=== PATIENT | female | born 1975 | race Caucasian/White ===

== ENCOUNTER 2016-05-09 18:24 | Emergency (ER) | payer OTHER ==
[2016-05-09 19:05] VITALS: PULSE 86; TEMP 99.7; BMI 27.9
--- NOTE | 2016-05-09 19:48 | PDOC ---
History of Present Illness - General History Source: Patient Exam Limitations: No Limitations - History of Present Illness Initial Comments: 05/09/16 19:54 The patient is a 41 year old female, with a significant past medical history of lupus, PE, TIA and dystonia, who presents to the emergency department with left sided neck pain and left shoulder pain with associated numbness/tingling radiating down her left arm to her left hand since earlier today. The patient reports that she was lifting her son (who is 64 lbs) yesterday and felt a popping sensation in the middle of her back as she was lifting him up. This morning, as she was stretching, she felt two additional popping sensations in her mid to upper back. As the day progressed today, the patient states that she has experienced increased left sided neck pain and left shoulder pain with intermittent episodes of left arm/left hand numbness and tingling. The patient reports that she had an MRI of the brain about a year and a half ago which revealed some cervical disc herniation. The patient denies chest pain. The patient denies fever, chills, headache, nausea, vomiting or any recent illnesses. The patient denies any other extremity weakness/numbness/tingling. Allergies: None reported. Past Surgical History: None reported. Social History: Non smoker. Denies alcohol or drug use. Neurologist: Dr. Lewis Cool <Britt Brady - Last Filed: 05/09/16 20:35> <Paula Larsen - Last Filed: 05/10/16 02:10> - General Chief Complaint: Pain Stated Complaint: LEFT NECK AND LEFT ARM NUMB Time Seen by Provider: 05/09/16 19:12 Past History <Britt Brady - Last Filed: 05/09/16 20:35> - Past Medical History HTN: Yes Other medical history: LUPUS - Immunization History Td Vaccination: Yes Immunization Up to Date: Yes - Psycho/Social/Smoking Cessation Hx Anxiety: No Suicidal Ideation: No Smoking Status: Yes Smoking History: Never smoked Have you smoked in the past 12 months: No Number of Cigarettes Smoked Daily: 0 Cigars Per Day: 0 Information on smoking cessation initiated: No Hx Alcohol Use: No Drug/Substance Use Hx: No <Paula Larsen - Last Filed: 05/10/16 02:10> - Past Medical History Allergies/Adverse Reactions: Allergies Allergy/AdvReac Type Severity Reaction Status Date / Time No Known Allergies Allergy Verified 05/09/16 18:27 Home Medications: Ambulatory Orders Hydroxychloroquine So4 [Plaquenil] 200 mg PO BID 02/12/12 Labetalol HCl 200 mg PO TID 02/12/12 Lamotrigine [Lamictal] 200 mg PO DAILY 02/12/12 Lisdexamfetamine Dimesylate [Vyvanse] 70 mg PO DAILY 02/12/12 [place] Carbonate [Eskalith -] 450 mg PO DAILY 05/09/16 Tizanidine HCl [Zanaflex (Nf) -] 2 mg PO TID PRN #12 tablet 05/09/16 Warfarin Sodium [Coumadin] 5 mg PO ASDIR 05/09/16 Review of Systems - Review of Systems Able to Perform ROS?: Yes Comments:: 05/09/16 19:51 CONSTITUTIONAL: Absent: fever, no chills, no fatigue EYES: Absent: visual changes ENT: Absent: ear pain, no sore throat CARDIOVASCULAR: Absent: chest pain, no palpitations RESPIRATORY:Absent: cough, no SOB GI: Absent: abdominal pain, no nausea, no vomiting, no constipation, no diarrhea GENITOURINARY: Absent: dysuria, no frequency, no hematuria MUSCULOSKELETAL: Present: +Left sided neck pain, left shoulder pain Absent: back pain SKIN: Absent: rash NEURO: Present: +Left arm/left hand numbness and tingling Absent: headache <[facility] ThomasBritt - Last Filed: 05/09/16 20:35> *Physical Exam - Vital Signs Last Vital Signs Temp Pulse Resp BP Pulse Ox 99.7 F H 86 20 146/103 98 05/09/16 18:25 05/09/16 18:25 05/09/16 18:25 05/09/16 18:25 05/09/16 18:25 - Physical Exam Comments: 05/09/16 19:57 GENERAL: The patient is awake, alert, and fully oriented, in no acute distress. HEAD: Normal with no signs of trauma. EYES: Pupils equal, round and reactive to light, extraocular movements intact, sclera anicteric, conjunctiva clear with no pallor. ENT: Ears normal, nares patent, oropharynx clear without exudates. Moist mucous membranes. NECK: Normal range of motion, supple without lymphadenopathy, JVD, or masses. LUNGS: Breath sounds equal, clear to auscultation bilaterally. No wheeze/ crackles. HEART: Regular rate and rhythm, normal S1 and S2 without murmur or rub. ABDOMEN: Soft/nontender/nondistended. BS wnl. No guarding or rebound. No palpable masses. No hepatosplenomegaly. MUSCULOSKELETAL: Mild central tenderness of the vertebral body from C7 extending down to T4. Tenderness of the left trapezius muscle and left rhomboid muscle. Pain reproduced with abduction of the left arm. EXTREMITIES: Normal range of motion, no edema. No clubbing or cyanosis. No cords or erythema. NEUROLOGICAL: Cranial nerves II through XII intact. Left hand strength is 4/5. Left elbow flexion strength is 4/5. All other strength is 5/5. Decreased sensation to light touch on the palmar aspect of fingers 2,3,4,5 of the left hand. No other sensory change. Normal speech, normal gait. PSYCH: Normal mood, normal affect. SKIN: Distal left arm is warm and dry. Good capillary refill. Radial pulse is briskly palpable. Warm, dry, normal turgor, no rashes or lesions noted. <Birtt Brady - Last Filed: 05/09/16 20:35> - Vital Signs Last Vital Signs Temp Pulse Resp BP Pulse Ox 99.7 F H 86 20 146/103 98 05/09/16 18:25 05/09/16 18:25 05/09/16 18:25 05/09/16 18:25 05/09/16 18:25 <Paula Larsen - Last Filed: 05/10/16 02:10> Medical Decision Making - Medical Decision Making Documentation has been prepared under my direction and personally reviewed by me in its entirety. I attest that this documented accurately reflects all work, treatment, procedures and medical decision making performed by me. As noted above, this 41-year-old woman with a history of PE/Lupus/right upper extremity dystonia presents with left upper back/shoulder and arm pain. Symptoms began after she lifted her son (64 pounds, 5-year-old). Patient describes hearing a "pop". Although no previous history of neck/upper back pain or shoulder issues, she recalls that MRI performed approximately a year ago by her neurologist during her dystonia workup revealed some cervical disc abnormality. Since she was asymptomatic at that time, no further workup or treatment was undertaken. Exam as noted above: She has tenderness of the left upper back musculature (trapezius/rhomboid muscles) and generalized pain with movement of her shoulder. She also has some mild midline tenderness of the upper back. Although she complains of some numbness in her arm, light touch sensation is decreased only at the fingertips of fingers 2 through 5. Left shoulder and cervical spine x-rays appear to be normal without evidence of fracture or dislocation. Case discussed with the patient's neurologist (Dr. Preciado, , [facility]) since no clear dermatomal pattern of pain/numbness is present, acute disc herniation is unlikely. While there may be some radiculopathy secondary to the injury, more likely that musculoskeletal strain with muscle spasm is etiology of her symptoms. The patient should call the office tomorrow and make an appointment to be seen within the next few days. Since the patient is currently on warfarin therapy because of her previous history of pulmonary embolus, anti-inflammatory medications cannot be prescribed. The patient was offered acetaminophen now but states that this is highly ineffective for her. She states that she tends not to take any medications for pain. She had once been prescribed tramadol but found that she became nauseated. Because of the likelihood of muscle spasm, prescription for tizanidine 2 mg up to 3 times a day will be transmitted to patient's pharmacy. Patient understands that this medication is sedating. Patient should return to the ER if she has worsening pain/paresthesias/numbness or limb weakness. <Paula Larsen - Last Filed: 05/10/16 02:10> *DC/Admit/Observation/Transfer - Attestations Scribe Attestion: 05/09/16 19:50 Documentation prepared by Britt Brady, acting as senior medical billing specialist for Paula Larsen MD. <Britt Brady - Last Filed: 05/09/16 20:35> <Paula Larsen - Last Filed: 05/10/16 02:10> Diagnosis at time of Disposition: Radicular pain in left arm Left shoulder strain Qualifiers: Encounter type: initial encounter Qualified Code(s): S46.912A - Strain of unspecified muscle, fascia and tendon at shoulder and upper arm level, left arm , initial encounter - Discharge Dispostion Disposition: HOME Condition at time of disposition: Stable - Prescriptions Prescriptions: Tizanidine HCl [Zanaflex (Nf) -] 2 mg PO TID PRN #12 tablet PRN Reason: Muscle Spasms - Patient Instructions Printed Discharge Instructions: DI for Cervical Radiculopathy Additional Instructions: local warm to left upper back continue medications as prescribed Zanaflex 2mg up to 3 X day as needed for muscle spasms can use Lidocaine patch in area of pain call Dr Preciado's office tomorrow for followup this week followup with your orthopedist as discussed
[2016-05-09 20:10] VITALS: BP 144/101
== END 2016-05-09 21:26 | disposition home or self-care (01) ==
LOC: FER 18:24
DX: S46.912A Strain of unspecified muscle, fascia and tendon at shoulder and upper arm level, left arm, initial encounter (principal); X58.XXXA Exposure to other specified factors, initial encounter; Y93.89 Activity, other specified; Y92.9 Unspecified place or not applicable; I10 Essential (primary) hypertension; M32.9 Systemic lupus erythematosus, unspecified; Z86.73 Personal history of transient ischemic attack (TIA), and cerebral infarction without residual deficits; G24.9 Dystonia, unspecified
CPT/HCPCS: 72050-TC; 73030-TC-LT; 84703; 99282-25

== ENCOUNTER 2017-05-09 07:31 | Day surgery (SDC) | payer OTHER ==
[2017-05-09] MEDS ORDERED: ACETAMINOPHEN 325 MG TABLET (FP) PO ONE (10:00)
[2017-05-09] MEDS ORDERED: DIPHENHYDRAMINE 50 MG in SODIUM CHLORIDE 100 ML IVPB ONE (10:00)
[2017-05-09] MEDS ORDERED: FERRIC CARBOXYMALTOSE 750 MG in SODIUM CHLORIDE 250 ML IVPB ONE (10:15)
[2017-05-09 16:54] VITALS: BP 124/98; PULSE 96; TEMP 97.8
== END 2017-05-09 12:45 | disposition home or self-care (01) ==
LOC: JONCCHEMO 07:31 → JONCNONCHE 07:31 → J7W 10:05 → JONCNONCHE 12:45
PROVIDERS: ATTEND Internal Medicine Hematology & Oncology
PROC: 3E033GC Introduction of Other Therapeutic Substance into Peripheral Vein, Percutaneous Approach (ICD-10-PCS; principal; 2017-05-09)
DX: D50.9 Iron deficiency anemia, unspecified (principal)
CPT/HCPCS: 96365

== ENCOUNTER 2017-05-16 07:28 | Day surgery (SDC) | payer OTHER ==
[2017-05-16] MEDS ORDERED: ACETAMINOPHEN 325 MG TABLET (FP) PO ONE (10:00)
[2017-05-16] MEDS ORDERED: DIPHENHYDRAMINE 50 MG in SODIUM CHLORIDE 100 ML IVPB ONE (10:00)
[2017-05-16] MEDS ORDERED: FERRIC CARBOXYMALTOSE 750 MG in SODIUM CHLORIDE 250 ML IVPB ONE (10:15)
[2017-05-16 14:02] VITALS: BP 113/61; PULSE 75; TEMP 98.1
== END 2017-05-16 11:44 | disposition home or self-care (01) ==
LOC: JONCNONCHE 07:28 → J7W 10:05 → JONCNONCHE 11:44
PROVIDERS: ATTEND Internal Medicine Hematology & Oncology
PROC: 3E033GC Introduction of Other Therapeutic Substance into Peripheral Vein, Percutaneous Approach (ICD-10-PCS; principal; 2017-05-16)
DX: D50.9 Iron deficiency anemia, unspecified (principal)
CPT/HCPCS: 96365; 96375; J1439